=== PATIENT | male | born 1985 | race Caucasian/White ===

== ENCOUNTER 2017-01-17 16:12 | Inpatient (IN) | payer BC, OTHER ==
[~2017-01-17] VITALS: Ht 200.7 cm; Wt 97.1 kg
[2017-01-17 17:43] LABS: Basophils # (auto) 0 uL; Basophils % (auto) 0.5 % (0.0-2.0); Eosinophils # (auto) 0 uL; Eosinophils % (auto) 0.6 % (0.0-7.0); Hematocrit 50.8 % (41.0-53.0); Hemoglobin 17.1 g/dL (13.5-17.5); Lymphocytes # (auto) 2.9 uL; Lymphocytes % (auto) 44.5 % (10.0-50.0); Mean Corpuscular Hemoglobin 29.2 pg (28.0-32.0); Mean Corpuscular Hgb Conc. 33.8 g/dL (32.0-36.0); Mean Corpuscular Volume 86.4 fL (80.0-100.0); Mean Platelet Volume 11.4 fL (7.4-10.4); Monocytes # (auto) 0.5 uL; Neutrophils # (auto) 3.1 uL; Neutrophils % (auto) 47.4 % (37.0-80.0); Platelet Count (auto) 228 10^3/uL (140-450); Red Cell Distribution Width 13.1 % (11.6-16.0); SUSPECT VIEW TRANSMISSION; White Blood Cell 6.6 10^3/uL (4.4-10.8)
[2017-01-17 17:57] LABS: INR 0.99 (0.9-1.15); Partial Thromboplastin Time 28.8 sec (22.64-33.71); Prothrombin Time 10.8 sec (9.37-12.3)
[2017-01-17] MEDS ORDERED: MORPHINE SULFATE 4 MG/ML SYRG IV ONE (18:00)
[2017-01-17] MEDS ORDERED: ONDANSETRON HCL 4 MG/2 ML VIAL IV ONE ×2 (18:00→23:30)
[2017-01-17 18:04] LABS: Albumin 4.4 g/dL (3.4-5.0); BUN/Creatinine Ratio 8.5; Calcium 9.2 mg/dL (8.5-10.1)
[2017-01-17 18:06] LABS: Bilirubin, Total 0.9 mg/dL (0.2-1.0); Total Protein 7.6 g/dL (6.4-8.2)
[2017-01-17 21:43] LABS: Urine Bilirubin Negative (Negative); Urine Blood Negative /uL (Negative); Urine Color Yellow (Yellow); Urine Glucose Normal (Normal); Urine Nitrite Negative (Negative); Urine RBC <1 /hpf (0 - 3); Urine Urobilinogen Normal (Negative)
[2017-01-17 21:44] LABS: Urine Ketone 1+ (Negative)
[2017-01-17] MEDS ORDERED: fentaNYL CITRATE 100 MCG/2 ML VL ONE ×2 (21:47→22:03)
[2017-01-17] MEDS ORDERED: LIDOCAINE HCL 2 %PF INJ 10ML AMP IJ ONE (21:48)
[2017-01-17] MEDS ORDERED: ONDANSETRON HCL 4 MG/2 ML VIAL ONE (21:48)
[2017-01-17] MEDS ORDERED: PROPOFOL 10 MG/ML 20 ML IV ONE (21:48)
[2017-01-17] MEDS ORDERED: DEXAMETHASONE SOD PHOS 10MG/1ML VIAL INJ ONE (21:48)
[2017-01-17] MEDS ORDERED: MIDAZOLAM HCL 1MG/1ML-2 ML VIAL ONE (21:48)
[2017-01-17] MEDS ORDERED: GLYCOPYRROLATE 0.2 MG/ML 1ML VIAL ONE (21:48)
[2017-01-17] MEDS ORDERED: KETOROLAC TROMETH 60MG/2ML VIAL IM ONE (21:48)
[2017-01-17] MEDS ORDERED: CIPROFLOXACIN 400MG/200ML 200 ML IV ONE (21:49)
[2017-01-17] MEDS ORDERED: BUPIVACAINE 0.25% INJ 50ML VIAL ONE (22:21)
[2017-01-17] MEDS ORDERED: LIDOCAINE 1% HCL (LOCAL ANESTH.) INJ 20ML MDV ONE (22:21)
[2017-01-17] MEDS ORDERED: LIDOCAINE W/ EPINEPHRINE 1 % INJ 30ML ONE (22:21)
[2017-01-17] MEDS ORDERED: BUPIVACAINE W/ EPINEPH 0.25% INJ 50ML MDV ONE (22:21)
[2017-01-17] MEDS ORDERED: NEOMYCIN-BACITRACIN-POLYM 15GM TOP OINT TOP ONE (22:43)
[2017-01-17] MEDS ORDERED: HYDROmorphone HCL 2 MG/ML VL IV PRN (23:30)
[2017-01-17] MEDS ORDERED: HYDROmorphone HCL 2 MG/ML VL ONE (23:33)
[2017-01-17] MEDS ORDERED: HYDROmorphone HCL 2 MG/ML VL IV ONE ×2 (23:34→23:46)
[2017-01-17] MEDS ORDERED: KETOROLAC TROMETH 30 MG/ML 1ML VIAL ONE (23:53)
[2017-01-17] MEDS ORDERED: KETOROLAC TROMETH 30 MG/ML 1ML VIAL IV ONE (23:58)
[2017-01-18] VITALS (7 sets, daily range): BP systolic 99–126; BP diastolic 54–77
[2017-01-18] MEDS ORDERED: KETOROLAC TROMETH 30 MG/ML 1ML VIAL IV ONE
[2017-01-18] MEDS ORDERED: HYDROmorphone HCL 2 MG/ML VL IV ONE ×3 (00:19→00:34)
[2017-01-18] MEDS: MORPHINE SULFATE 4 MG/ML SYRG IV PRN ×4 (01:36→09:49)
[2017-01-18] MEDS: HYDROcodone-ACET 10/325MG TAB PO PRN ×2 (03:11→08:35)
[2017-01-18] MEDS: SODIUM CHLORIDE 0.9% 1,000 ML IV SCH ×4 (04:28→20:02)
[2017-01-18 08:24] LABS: BUN/Creatinine Ratio 14.7; Calcium 8.7 mg/dL (8.5-10.1); Potassium 3.5 mmol/L (3.5-5.1)
[2017-01-18] MEDS: CIPROFLOXACIN HCL 500 MG TAB PO SCH ×2 (09:49→21:38)
[2017-01-18] MEDS: HYDROmorphone HCL 2 MG/ML VL IV PRN ×3 (12:02→20:08)
[2017-01-18] MEDS: ONDANSETRON HCL 4 MG/2 ML VIAL IV PRN (16:05)
[2017-01-19] MEDS: SODIUM CHLORIDE 0.9% 1,000 ML IV SCH ×4 (02:25→22:26)
[2017-01-19] MEDS: HYDROcodone-ACET 10/325MG TAB PO PRN ×3 (02:59→16:31)
[2017-01-19] MEDS: HYDROmorphone HCL 2 MG/ML VL IV PRN ×4 (03:25→21:39)
[2017-01-19] MEDS: ONDANSETRON HCL 4 MG/2 ML VIAL IV PRN (03:25)
[2017-01-19] MEDS: LORazepam 2MG/ML-1ML VIAL IV PRN ×2 (04:35→21:29)
[2017-01-19 05:00] VITALS: BP 105/61
[2017-01-19 05:50] LABS: Basophils # (auto) 0 uL; Basophils % (auto) 0.4 % (0.0-2.0); Eosinophils # (auto) 0 uL; Eosinophils % (auto) 0.5 % (0.0-7.0); Hematocrit 43.6 % (41.0-53.0); Hemoglobin 14.6 g/dL (13.5-17.5); Lymphocytes # (auto) 2.8 uL; Lymphocytes % (auto) 41.9 % (10.0-50.0); Mean Corpuscular Hemoglobin 29.1 pg (28.0-32.0); Mean Corpuscular Hgb Conc. 33.5 g/dL (32.0-36.0); Mean Corpuscular Volume 86.8 fL (80.0-100.0); Mean Platelet Volume 11.7 fL (7.4-10.4); Monocytes # (auto) 0.5 uL; Monocytes % (auto) 8.1 % (0.0-12.0); Neutrophils # (auto) 3.3 uL; Neutrophils % (auto) 49.1 % (37.0-80.0); Platelet Count (auto) 188 10^3/uL (140-450); Red Cell Distribution Width 12.7 % (11.6-16.0); White Blood Cell 6.7 10^3/uL (4.4-10.8)
[2017-01-19 06:33] LABS: BUN/Creatinine Ratio 12.9; Calcium 8.5 mg/dL (8.5-10.1); Potassium 3.4 mmol/L (3.5-5.1)
[2017-01-19 08:40] VITALS: BP 114/65
[2017-01-19] MEDS ORDERED: POTASSIUM CHL 20 Meq TABLET PO ONE (09:00)
[2017-01-19] MEDS ORDERED: DOCUSATE SOD 100 MG CAP PO PRN ×2 (10:00→10:15)
[2017-01-19] MEDS ORDERED: MILK OF MAGNESIA 30ML SUSP PO ONE (10:15)
[2017-01-19] MEDS: CIPROFLOXACIN HCL 500 MG TAB PO SCH ×2 (10:26→21:32)
[2017-01-19 17:06] VITALS: BP 120/72
[2017-01-19] MEDS ORDERED: LORazepam 2MG/ML-1ML VIAL IV PRN (18:45)
[2017-01-19 22:00] VITALS: BP 109/70
[2017-01-19] MEDS ORDERED: MAGNESIUM CITRATE SOLUTION 300 ML BTL PO ONE (22:30)
[2017-01-20] MEDS: HYDROcodone-ACET 10/325MG TAB PO PRN ×3 (02:00→10:55)
[2017-01-20 05:00] VITALS: BP 108/53
[2017-01-20] MEDS: SODIUM CHLORIDE 0.9% 1,000 ML IV SCH (05:05)
[2017-01-20] MEDS: CIPROFLOXACIN HCL 500 MG TAB PO SCH (10:00)
== END 2017-01-20 11:25 | disposition home or self-care (01) | DRG 711 ==
LOC: ER 16:17 → PACU OR 21:51 → CENTRAL 21:52
PROVIDERS: ADMIT Emergency Medicine; ATTEND Emergency Medicine
PROC: 0VQC0ZZ Repair Bilateral Testes, Open Approach (ICD-10-PCS; principal; 2017-01-17 22:00)
DX: N44.00 Torsion of testis, unspecified (principal); N17.9 Acute kidney failure, unspecified; S32.039A Unspecified fracture of third lumbar vertebra, initial encounter for closed fracture; S32.049A Unspecified fracture of fourth lumbar vertebra, initial encounter for closed fracture; S32.059A Unspecified fracture of fifth lumbar vertebra, initial encounter for closed fracture; I86.1 Scrotal varices; F12.90 Cannabis use, unspecified, uncomplicated; X58.XXXA Exposure to other specified factors, initial encounter; Y93.89 Activity, other specified; Y92.89 Other specified places as the place of occurrence of the external cause; Y99.8 Other external cause status
CPT/HCPCS: 36415; 76775; 76870; 80048; 80053; 81001; 85025; 85610; 85730; 86850; 86900; 86901; 93005; 96374; 96375; J1100; J1885; J2001; J2250; J2405; J2704; J3490